=== PATIENT | female | born 1960 | race Caucasian/White ===

== ENCOUNTER 2017-02-01 08:16 | Emergency (ER) | payer OTHER ==
[~2017-02-01] VITALS: Ht 162.6 cm; Wt 64.0 kg
[2017-02-01 08:20] VITALS: BP 189/92; PULSE 97; RESP 16; TEMP 98.1; O2SAT 97
[2017-02-01] MEDS ORDERED: OMEP20TA PO (08:41)
[2017-02-01] MEDS ORDERED: LEVO100T5 PO (08:41)
[2017-02-01] MEDS ORDERED: LIDOCAINE VISCOUS 2% SOLN 15 ML UDC PO ONE (08:45)
[2017-02-01] MEDS ORDERED: ONDANSETRON HCL 4 MG/2 ML VIAL IV PUSH ONE (08:45)
[2017-02-01] MEDS ORDERED: ALUMINUM/MAGNESIUM/SIMETH 30 ML CUP PO ONE (08:45)
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
--- NOTE | 2017-02-01 09:06 | RADRPT ---
EXAM DATE/TIME: 02/01/2017 08:52 [facility] COMPARISON: No previous studies available for comparison. INDICATIONS : Chest pain MEDICAL HISTORY : None. SURGICAL HISTORY : None. ENCOUNTER: Initial ACUITY: 1 day PAIN SCORE: 7/10 LOCATION: Bilateral chest FINDINGS: Portable AP view of the chest demonstrates a normal-sized cardiac silhouette. No effusion, consolidat ion, or pneumothorax is visualized. The bones and soft tissues demonstrate no acute abnormality. CONCLUSION: No acute cardiopulmonary abnormality is identified. Nilay Goff MD on February 01, 2017 at 9:04 Board Certified Radiologist. This report was verified electronically.
[2017-02-01 09:07] VITALS: BP 177/89; PULSE 88; RESP 18; O2SAT 98
[2017-02-01 09:08] LABS: AUTOMATED NEUTROPHIL # 8.2 TH/MM3 (1.8-7.7); BASOPHIL # 0.1 TH/MM3 (0-0.2); BASOPHIL % 0.9 % (0.0-2.0); EOSINOPHIL % 0.5 % (0.0-4.0); HEMATOCRIT 38.9 % (35.0-46.0); LYMPHOCYTE # 1.2 TH/MM3 (1.0-4.8); MEAN CORPUSCULAR HEMOGLOBIN 30.5 PG (27.0-34.0); MEAN CORPUSCULAR HGB CONC 33.9 % (32.0-36.0); MONO % 3.6 % (0.0-8.0); PLATELET COUNT 366 TH/MM3 (150-450); RED BLOOD COUNT 4.32 MIL/MM3 (4.00-5.30); RED CELL DISTRIBUTION WIDTH 12.5 % (11.6-17.2); WHITE BLOOD COUNT 9.9 TH/MM3 (4.0-11.0)
[2017-02-01 09:49] LABS: BICARBONATE 25.7 MEQ/L (21.0-32.0)
[2017-02-01 09:52] LABS: AST (GOT) 28 U/L (15-37); GLOMERULAR FILTRATION RATE 81 ML/MIN (>89)
[2017-02-01 09:54] LABS: TOTAL BILIRUBIN ADULT 0.4 MG/DL (0.2-1.0)
[2017-02-01 09:55] LABS: ALKALINE PHOSPHATASE 164 U/L (45-117)
[2017-02-01 09:59] LABS: ANION GAP 12 MEQ/L (5-15); CHLORIDE 97 MEQ/L (98-107); SODIUM (NA) 135 MEQ/L (136-145)
[2017-02-01 10:00] LABS: HEMO FLAGS DIFF FINAL
[2017-02-01 10:01] LABS: ALT (GPT) 34 U/L (10-53); BLOOD UREA NITROGEN 10 MG/DL (7-18)
[2017-02-01 10:27] VITALS: BP 172/90; PULSE 82; RESP 16; O2SAT 98
[2017-02-01] MEDS ORDERED: POTASSIUM CHLORIDE 20 MEQ CONTROLLED RELEASE TAB PO ONE (10:45)
--- NOTE | 2017-02-02 11:25 | EKG ---
Date Performed: 02/01/2017 Time Performed: 08:32:21 PTAGE: 56 years EKG: Sinus rhythm POSSIBLE LEFT ATRIAL ENLARGEMENT BORDERLINE ECG Compared to prior tracing no significant change PREVIOUS TRACING : 02/21/14 DOCTOR: Jahaira Mckinley Interpretating Date/Time 02/02/2017 11:29:42
== END 2017-02-01 10:51 | disposition home or self-care (01) ==
LOC: PHED 08:16
DX: K29.00 Acute gastritis without bleeding (principal)
CPT/HCPCS: 71010; 80053; 83690; 84443; 84484; 85025; 93005; 96374; 99284; J2405